=== PATIENT | female | born 1995 | race Asian ===

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

== ENCOUNTER 2017-10-30 08:05 | Emergency (ER) | END 2017-10-30 08:29 | disposition home or self-care (01) ==

== ENCOUNTER 2018-06-30 20:57 | Emergency (ER) | payer OTHER ==
[~2018-06-30] VITALS: Ht 154.9 cm; Wt 45.5 kg
[~2018-06-30 20:57] MED LIST changes: +ALBU18HF INHALATION; +AZIT250T PO; +BENZ-6 PO; +NITR-58 PO; +PHEN-538 PO
[2018-06-30 21:14] VITALS: Ht 154.9 cm; Wt 45.5 kg
[2018-07-01] MEDS ORDERED: SOD CHLORIDE 0.9% 1,000 ML IV STA (00:32)
[2018-07-01] MEDS ORDERED: ONDANSETRON 4 MG INJ IV STA (00:36)
[2018-07-01] MEDS ORDERED: HYDROCODONE/APAP (5/325) TAB PO ONE (01:00)
[2018-07-01] MEDS ORDERED: SOD CHLORIDE 0.9% 100 ML ONE (01:51)
[2018-07-01] MEDS ORDERED: IOHEXOL 300MG/ML 150 ML BTL ONE (01:51)
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
[2018-07-01] MEDS ORDERED: BACITRACIN 0.9 GM OINT TOP ONE (03:30)
[2018-07-01] MEDS ORDERED: CEPH-443 PO (04:10)
[2018-07-01] MEDS ORDERED: IBUP-1542 PO (04:10)
[2018-07-01] MEDS ORDERED: HYDR-4011 PO (04:11)
[2018-07-01] MEDS ORDERED: DOCU-144 PO (04:12)
[2018-07-01 04:24] VITALS: BP 118/79; PULSE 77; RESP 18
== END 2018-07-01 04:25 | disposition home or self-care (01) ==
LOC: FTE 20:57
DX: S30.1XXA Contusion of abdominal wall, initial encounter (principal); J45.909 Unspecified asthma, uncomplicated; V49.40XA Driver injured in collision with unspecified motor vehicles in traffic accident, initial encounter
CPT/HCPCS: 36415; 74177; 80053; 81001; 81025; 83690; 85025; 96361; 96374; J2405; J7030; Q9967; Z7502; Z7610; 81003